=== PATIENT | male | born 1945 | race Caucasian/White ===

== ENCOUNTER 2016-10-28 11:24 | Outpatient (CLI) | payer MEDICARE, OTHER | END 2016-10-28 11:25 | disposition home or self-care (01) | DX: N40.1 Benign prostatic hyperplasia with lower urinary tract symptoms (principal) ==

== ENCOUNTER 2016-12-20 08:12 | Outpatient (CLI) | payer MEDICARE, OTHER | END 2016-12-20 08:13 | disposition home or self-care (01) | DX: R73.01 Impaired fasting glucose (principal); E78.5 Hyperlipidemia, unspecified; E03.9 Hypothyroidism, unspecified; N40.0 Benign prostatic hyperplasia without lower urinary tract symptoms; D12.6 Benign neoplasm of colon, unspecified ==

== ENCOUNTER 2017-12-07 08:00 | Outpatient (CLI) | payer MEDICARE, OTHER | END 2017-12-07 08:01 | disposition home or self-care (01) | LOC: LAB.WCP 08:00 | PROVIDERS: ATTEND Urology | DX: N40.1 Benign prostatic hyperplasia with lower urinary tract symptoms (principal); Z80.42 Family history of malignant neoplasm of prostate | CPT/HCPCS: 36415; 84153 ==

== ENCOUNTER 2018-01-17 12:01 | Emergency (ER) | payer MEDICARE, OTHER ==
[2018-01-17] MEDS ORDERED: ONDANSETRON 4 MG/2 ML VIAL IVP STA (12:28)
[2018-01-17] MEDS ORDERED: MORPHINE 10 MG/ML VIAL IVP STA (12:28)
--- NOTE | 2018-01-17 12:32 | ED Physician Documentation ---
PD HPI ABD PAIN - Stated complaint Stated Complaint: ABD PX/NAUESA - Chief complaint Chief Complaint: Abd Pain - History obtained from History obtained from: Patient - History of Present Illness Timing - onset: Today (2 onset left lower quadrant pain radiating slightly to the back associated with nausea and 2 episodes of dry heaves since about 3 or 4 hours ago. He has never had this before. He did have an episode of dark urine yesterday and notes that he had severe pelvic pain for about 10 minutes may be 10 days ago but no pain since until today. He notes no changes in his bowel movements and he did not move his bowels this morning without any change in the pain but did become nauseous afterwards. There is no associated fevers or chills. His last colonoscopy was about a year and a half ago and he did have some polyps and diverticula. He has no history of abdominal surgery except for a left inguinal hernia repair may be 15 years ago.) Review of Systems Ten Systems: 10 systems reviewed and negative Constitutional: denies: Fever, Chills Cardiac: denies: Chest pain / pressure, Palpitations Respiratory: denies: Dyspnea, Cough GI: reports: Abdominal Pain, Nausea, Vomiting. denies: Constipation, Diarrhea, Hematemesis, Bloody / black stool : reports: Frequency (Always from prostatic hypertrophy). denies: Dysuria PD PAST MEDICAL HISTORY - Past Medical History Past Medical History: Yes Cardiovascular: Hypertension, High cholesterol Respiratory: None Endocrine/Autoimmune: HyPOthyroidism GI: None : None HEENT: None Psych: None Musculoskeletal: None Derm: None - Past Surgical History Past Surgical History: Yes General: Colonoscopy, Other Ortho: Other - Present Medications Home Medications: Ambulatory Orders Medication Instructions Recorded Confirmed Aspirin Chewable [[place] 1 ea PO DAILY 07/02/15 07/02/15 Aspirin] Atorvastatin [Lipitor] 1 ea PO DAILY 07/02/15 07/02/15 [place] Cit/Mag/D3/Zn/Saddle Stitcher/Cheikh/Bor 1 ea PO DAILY 07/02/15 07/02/15 [Citracal-Vit D + Magnesium Tab] Levothyroxine Sodium 1 ea PO DAILY 07/02/15 07/02/15 Meloxicam [Mobic] 7.5 mg PO BIDWM PRN #15 tablet 01/17/18 Ondansetron HCl [Zofran] 4 mg PO Q6H PRN #10 tablet 01/17/18 Oxycodone HCl/Acetaminophen 1 - 2 tab PO Q4H PRN #15 tablet 01/17/18 [Percocet 5-325 mg Tablet] Tamsulosin [Flomax] 01/17/18 - Allergies Allergies/Adverse Reactions: Allergies Allergy/AdvReac Type Severity Reaction Status Date / Time No Known Drug Allergies Allergy Verified 07/02/15 07:41 - Social History Does the pt smoke?: No Smoking Status: Never smoker - Family History Family history: reports: Non contributory PD ED PE NORMAL - Vitals Vital signs reviewed: Yes - General General: Alert and oriented X 3, No acute distress - HEENT HEENT: PERRL, EOMI - Neck Neck: Supple, no meningeal sign, No bony TTP - Cardiac Cardiac: RRR, No murmur - Respiratory Respiratory: No respiratory distress, Clear bilaterally - Abdomen Abdomen: Other (Soft with normal bowel tones and mild left lower quadrant tenderness. No guarding or rebound.) - Back Back: No CVA TTP, No spinal TTP - Derm Derm: Normal color, Warm and dry - Extremities Extremities: No edema, No calf tenderness / cord - Neuro Neuro: Alert and oriented X 3, Normal speech - Psych Psych: Normal mood, Normal affect Results - Vitals Vitals: Vital Signs - 24 hr 01/17/18 01/17/18 12:13 14:23 Temperature 36.0 C L 36.1 C L Heart Rate 84 63 Respiratory 16 18 Rate Blood Pressure 160/85 H 126/76 O2 Saturation 100 99 Oxygen O2 Source Room air - Labs Labs: Laboratory Tests 01/17/18 01/17/18 01/17/18 12:35 12:35 13:42 WBC 8.9 RBC 4.86 Hgb 15.5 Hct 44.6 MCV 91.7 MCH 31.8 H MCHC 34.7 RDW 12.5 Plt Count 141 MPV 9.2 Neut # (Auto) 6.2 Lymph # (Auto) 2.0 [place] # (Auto) 0.6 Eos # (Auto) 0.1 Baso # (Auto) 0.0 Absolute Nucleated RBC 0.00 Nucleated RBC % 0.0 Sodium 133 L Potassium 4.0 Chloride 98 L Carbon Dioxide 28 Anion Gap 7.0 BUN 25 H Creatinine 1.1 Estimated GFR (MDRD) 65 L Glucose 134 H Calcium 8.8 Total Bilirubin 1.1 H AST 19 ALT 23 Alkaline Phosphatase 56 Total Protein 6.9 Albumin 4.3 Globulin 2.6 Albumin/Globulin Ratio 1.7 Lipase 23 Urine Color DARK YELLOW Urine Clarity CLOUDY Urine pH 5.5 Ur Specific [place] 1.025 Urine Protein 30 H Urine Glucose (UA) NEGATIVE Urine Ketones NEGATIVE Urine Occult Blood LARGE H Urine Nitrite NEGATIVE Urine Bilirubin NEGATIVE Urine Urobilinogen 1 (NORMAL) Ur Leukocyte Esterase NEGATIVE Urine RBC TNTC H Urine WBC 0-3 Ur Squamous Epith Cells RARE Squamous Urine Crystals 6-10 Calcium Oxalate Urine Bacteria None Seen Ur Microscopic Review INDICATED Urine Culture Comments NOT INDICATED - Rads (name of study) CT A/P Radiology: EMP read contemporaneously (2 x 3 mm stone mid left ureter causing mild obstruction, diverticulosis, hepatic and renal cysts.) PD MEDICAL DECISION MAKING - ED course ED course: 72-year-old gentleman with relatively acute left lower quadrant pain, the differential diagnosis includes renal colic or diverticulitis. Did not have much help with IV narcotics and then developed colicky pain in the department more consistent with renal colic prior to the administration of Toradol which he then declined but then the pain came back so we did give it to him with complete relief of his pain. CT imaging demonstrates a 4 mm kidney stone. Usually this would be followed conservatively, he does have a urologist, Dr. Pearson in [place]. However the situation is complicated a little bit by the fact that the patient is planning to go to [place] in 5 days. I did speak with Dr. Pearson and they plan to take him to the operating room tomorrow for definitive treatments given the restrictions because of his upcoming trip. Departure - Departure Disposition: Home, Self Care Clinical Impression: Renal colic on left side Condition: Good Record reviewed to determine appropriate education?: Yes Instructions: ED Stone Renal W Colic Follow-Up: Antonio Pearson MD [Physician No Access] - Within 3 Days Prescriptions: Meloxicam [Mobic] 7.5 mg PO BIDWM PRN #15 tablet PRN Reason: Pain Ondansetron HCl [Zofran] 4 mg PO Q6H PRN #10 tablet PRN Reason: Nausea / Vomiting Oxycodone HCl/Acetaminophen [Percocet 5-325 mg Tablet] 1 - 2 tab PO Q4H PRN #15 tablet PRN Reason: Pain Comments: DO NOT EAT OR DRINK ANYTHING AFTER MIDNIGHT 2ND FLOOR- DAY SURGERY AT [facility] AT [address] or drive while taking narcotic pain medication.(PERCOCET/OXYCODONE) Note that many narcotic pain relievers also contain Tylenol/acetaminophen. Please ensure that your total dose of acetaminophen from all sources does not exceed 3 g (3000 mg) per day. You may get constipated while on this medication. Take a stool softener such as Colace twice a day while you are on it. Also add an [id number] laxative such as senna or MiraLAX on any day that you do not have a bowel movement. If you received a narcotic pain medication or sedative while in the emergency department, do not drive for the next 24 hours.
[2018-01-17 12:48] LABS: BASOPHILS % (AUTO) 0.6 %; EOSINOPHILS # (AUTO) 0.1 10^3/uL (0.0-0.7); EOSINOPHILS % (AUTO) 0.9 %; HGB - HEMOGLOBIN 15.5 g/dL (14.0-18.0); LYMPHOCYTES % (AUTO) 22.3 %; MEAN CORPUSCULAR HEMOGLOBIN 31.8 pg (27.0-31.0); MEAN CORPUSCULAR HGB CONC 34.7 g/dL (32.0-36.0); MEAN CORPUSCULAR VOLUME 91.7 fL (80.0-94.0); MEAN PLATELET VOLUME 9.2 fL (7.4-11.4); MONOCYTES # (AUTO) 0.6 10^3/uL (0.0-1.0); MONOCYTES % (AUTO) 6.9 %; NEUTROPHILS # (AUTO) 6.2 10^3/uL (1.5-6.6); NEUTROPHILS % (AUTO) 69.3 %; PLT - PLATELET COUNT 141 10^3/uL (130-450); RED BLOOD COUNT 4.86 10^6/uL (4.70-6.10); RED CELL DISTRIBUTION WIDTH 12.5 % (12.0-15.0); WHITE BLOOD COUNT 8.9 x10^3/uL (4.8-10.8)
[2018-01-17] MEDS ORDERED: HYDROmorphone 2 MG/ML VIAL IVP STA (12:53)
[2018-01-17 13:02] LABS: ALBUMIN 4.3 g/dL (3.2-5.5); ALBUMIN/GLOBULIN RATIO 1.7 (1.0-2.2); BILIRUBIN,TOTAL 1.1 mg/dL (0.2-1.0); CALCIUM 8.8 mg/dL (8.5-10.3); CREATININE 1.1 mg/dL (0.6-1.2); TOTAL PROTEIN 6.9 g/dL (6.7-8.2)
[2018-01-17] MEDS ORDERED: SODIUM CHLORIDE 0.9% 1,000 ML IV ONE (13:19)
[2018-01-17] MEDS ORDERED: PROMETHAZINE INJ 12.5 MG in SODIUM CHLORIDE 0.9% 50 ML IV STA ×2 (13:19→14:03)
[2018-01-17] MEDS ORDERED: KETOROLAC 60 MG/2 ML VIAL IVP STA ×2 (13:19→14:03)
[2018-01-17] MEDS ORDERED: IOPAMIDOL-300 100 ML VIAL ONE (13:29)
[2018-01-17 13:50] LABS: GLUCOSE, URINE (UA) NEGATIVE (NEGATIVE); KETONES,URINE (UA) NEGATIVE (NEGATIVE); LEUKOCYTE ESTERASE, URINE NEGATIVE (NEGATIVE); NITRITE,URINE NEGATIVE (NEGATIVE); OCCULT BLOOD,URINE LARGE (NEGATIVE); PH,URINE 5.5 PH (5.0-7.5); PROTEIN,URINE 30 mg/dL (NEGATIVE); UROBILINOGEN,URINE 1 (NORMAL) E.U./dL (NORMAL)
[2018-01-17 13:53] LABS: BILIRUBIN,URINE NEGATIVE (NEGATIVE); CLARITY,URINE CLOUDY (CLEAR); ICTOTEST,URINE NEGATIVE
[2018-01-17 14:00] LABS: BACTERIA,URINE None Seen /HPF (None Seen); CRYSTALS,URINE 6-10 Calcium Oxalate /LPF; RBC,URINE TNTC /HPF (0-5); SQUAMOUS EPITHELIAL CELL,UR RARE Squamous (<= Few)
--- NOTE | 2018-01-17 15:19 | CT Preliminary Report ---
Exam: CT ABDOMEN/PELVIS W/ IMPRESSION: 1. 2 x 3 mm stone mid left ureter causing mild obstruction. 2. Colonic diverticulosis without diverticulitis. 3. 1.0 cm hepatic cyst. 4. 9.5 cm left renal cyst. 5. Normal appendix. [facility] SITE ID: [id number]
--- NOTE | 2018-01-17 15:25 | CT Report ---
EXAM: CT ABDOMEN AND PELVIS EXAM DATE: 01/17/2018 03:03 PM. CLINICAL HISTORY: Left lower quadrant pain and nausea since 10 AM this morning. COMPARISONS: 12/08/2011. TECHNIQUE: Routine helical CT imaging was performed through the abdomen and pelvis. IV contrast: 100 ML ISOVUE 300. Enteric contrast: No. Reconstructions: Coronal and sagittal. In accordance with CT protocol optimization, one or more of the following dose reduction techniques w ere utilized for this exam: automated exposure control, adjustment of mA and/or KV based on patient s ize, or use of iterative reconstructive technique. FINDINGS: Lung Bases: Unremarkable. Liver: Stable 1 cm subcapsular cyst inferior aspect right lobe of the liver. Gallbladder/Bile Ducts: Unremarkable. Spleen: Normal. Pancreas: Normal. Adrenal Glands: Normal. Kidneys: Normal right kidney and right ureter. Increasing caliber of a large cyst superior pole left kidney now measuring 9.5 cm, previously 8.5 cm. New mild left hydronephrosis. New mild left peripelvic and left perirenal edema. Left ureter is mildl y dilated superior half down to a 2 x 3 mm stone at the level of the superior endplate of L5. Inferio r to this, the left ureter is tiny without additional stones. Peritoneal Cavity/Bowel: Diverticuli off the colon. No free fluid, free air or adenopathy. No masses or acute inflammatory process. The appendix is well visualized and normal. Pelvic Organs: Stable appearance both fat-filled inguinal canals, possible remote left inguinal surge ry. The bladder and visualized pelvic organs are within normal limits. Vasculature: No aneurysms or other significant abnormality. Bones: No significant abnormality. Other: None. IMPRESSION: 1. 2 x 3 mm stone mid left ureter causing mild obstruction. 2. Colonic diverticulosis without diverticulitis. 3. 1.0 cm hepatic cyst. 4. 9.5 cm left renal cyst. 5. Normal appendix. [facility] Referring Provider Line: [phone] SITE ID: [id number]
[2018-01-17 16:28] VITALS: BP 125/75
[2018-01-17] MEDS ORDERED: IOPAMIDOL-300 100 ML VIAL IVP ONE (17:08)
== END 2018-01-17 16:30 | disposition home or self-care (01) ==
LOC: ED 12:01
DX: N13.2 Hydronephrosis with renal and ureteral calculous obstruction (principal); Q61.01 Congenital single renal cyst; K76.89 Other specified diseases of liver; K57.30 Diverticulosis of large intestine without perforation or abscess without bleeding; I10 Essential (primary) hypertension; E03.9 Hypothyroidism, unspecified; Z79.82 Long term (current) use of aspirin
CPT/HCPCS: 36415; 74177; 80053; 81001; 83690; 85025; 96361; 96365; 96375; 99283; 99284; J1170; J7040; Q9967; 81003; 87086

== ENCOUNTER 2018-02-27 08:00 | Outpatient (CLI) | payer MEDICARE, OTHER ==
[2018-02-27 13:45] LABS: ALBUMIN 3.9 g/dL (3.2-5.5); ALBUMIN/GLOBULIN RATIO 1.6 (1.0-2.2); ALKALINE PHOSPHATASE 62 IU/L (42-121); ALT ALANINE AMINOTRANSFERASE 28 IU/L (10-60); AST ASPARTATE AMINOTRANSFERASE 21 IU/L (10-42); BILIRUBIN,TOTAL 1.1 mg/dL (0.2-1.0); BUN - BLOOD UREA NITROGEN 21 mg/dL (6-20); CALCIUM 8.7 mg/dL (8.5-10.3); CARBON DIOXIDE - CO2 27 mmol/L (21-32); CHLORIDE 107 mmol/L (101-111); CHOL/HDL RATIO 2.9 (<5.0); CHOLESTEROL 119 mg/dL; GFR - MDRD 73 (>89); GLUCOSE 113 mg/dL (70-100); HDL CHOLESTEROL 41 mg/dL; LDL CHOLESTEROL,CALCULATED 67 mg/dL; LDL/HDL RATIO 1.6 (<3.6); SODIUM 139 mmol/L (135-145); TOTAL PROTEIN 6.4 g/dL (6.7-8.2); VLDL CHOLESTEROL 11 mg/dL
[2018-02-27 13:54] LABS: HB2 TOTAL 16.1 g/dL; HEMOGLOBIN A1C 0.64 g/dL; HEMOGLOBIN A1C % 5.8 % (4.6-6.2)
== END 2018-02-27 08:01 | disposition home or self-care (01) ==
LOC: LAB.WCP 08:00
PROVIDERS: ATTEND Family Medicine
DX: E78.5 Hyperlipidemia, unspecified (principal); R73.01 Impaired fasting glucose; E03.9 Hypothyroidism, unspecified
CPT/HCPCS: 36415; 80053; 80061; 83036; 83721; 84443

== ENCOUNTER 2018-09-13 08:55 | Outpatient (CLI) | payer MEDICARE, OTHER ==
[2018-09-13 13:15] LABS: ALBUMIN 4.3 g/dL (3.2-5.5); ALBUMIN/GLOBULIN RATIO 1.8 (1.0-2.2); ALKALINE PHOSPHATASE 54 IU/L (42-121); ALT ALANINE AMINOTRANSFERASE 24 IU/L (10-60); AST ASPARTATE AMINOTRANSFERASE 20 IU/L (10-42); BILIRUBIN,TOTAL 1.1 mg/dL (0.2-1.0); BUN - BLOOD UREA NITROGEN 20 mg/dL (6-20); CALCIUM 9.1 mg/dL (8.5-10.3); CARBON DIOXIDE - CO2 28 mmol/L (21-32); CHLORIDE 103 mmol/L (101-111); CHOLESTEROL 133 mg/dL; CREATININE 1.1 mg/dL (0.6-1.2); GFR - MDRD 65 (>89); GLUCOSE 109 mg/dL (70-100); HDL CHOLESTEROL 45 mg/dL; LDL CHOLESTEROL,CALCULATED 75 mg/dL; LDL/HDL RATIO 1.7 (<3.6); SODIUM 136 mmol/L (135-145); TOTAL PROTEIN 6.7 g/dL (6.7-8.2); VLDL CHOLESTEROL 13 mg/dL
== END 2018-09-13 23:59 | disposition home or self-care (01) ==
LOC: LAB.WCP 08:55
PROVIDERS: ATTEND Family Medicine
DX: E78.5 Hyperlipidemia, unspecified (principal)
CPT/HCPCS: 36415; 80053; 80061; 83721; 84443

== ENCOUNTER 2018-11-02 12:34 | Emergency (ER) | payer MEDICARE, OTHER ==
[2018-11-02] MEDS ORDERED: ONDANSETRON 4 MG/2 ML VIAL IVP STA (13:14)
[2018-11-02] MEDS ORDERED: SODIUM CHLORIDE 0.9% 1,000 ML IV ONE (13:14)
[2018-11-02] MEDS ORDERED: fentaNYL 100 MCG/2 ML VIAL IVP STA (13:15)
--- NOTE | 2018-11-02 13:24 | ED Physician Documentation ---
PD HPI ABD PAIN - Stated complaint Stated Complaint: ABD PAIN - Chief complaint Chief Complaint: Abd Pain - Additional information Additional information: 73-year-old male presents the emergency department with left lower abdominal pain that started this afternoon. The patient described a sharp stabbing pain in his left lower abdomen. The patient denies any radiation of the pain. The patient denies vomiting or diarrhea. No blood in the stools recently. No relieving factors. Symptoms are described as moderate. No other associated symptoms Review of Systems Constitutional: denies: Fever, Chills Eyes: denies: Discharge Ears: denies: Ear pain Nose: denies: Congestion Throat: denies: Oral lesions / sores Cardiac: denies: Chest pain / pressure Respiratory: denies: Dyspnea GI: reports: Abdominal Pain. denies: Vomiting, Diarrhea : denies: Dysuria Musculoskeletal: denies: Neck pain Neurologic: denies: Generalized weakness Immunocompromised: denies: Chemotherapy PD PAST MEDICAL HISTORY - Past Medical History Cardiovascular: Hypertension, High cholesterol Respiratory: None Endocrine/Autoimmune: HyPOthyroidism GI: None : None HEENT: None Psych: None Musculoskeletal: None Derm: None - Past Surgical History Past Surgical History: Yes General: Colonoscopy, Other Ortho: Other - Present Medications Home Medications: Ambulatory Orders Medication Instructions Recorded Confirmed Aspirin Chewable [[place] 1 ea PO DAILY 07/02/15 07/02/15 Aspirin] Atorvastatin [Lipitor] 1 ea PO DAILY 07/02/15 07/02/15 Far[place]kh Cit/Mag/D3/Zn/Avionics Integration Engineer/Cheikh/Bor 1 ea PO DAILY 07/02/15 07/02/15 [Citracal-Vit D + Magnesium Tab] Levothyroxine Sodium 1 ea PO DAILY 07/02/15 07/02/15 Meloxicam [Mobic] 7.5 mg PO BIDWM PRN #15 tablet 01/17/18 Ondansetron HCl [Zofran] 4 mg PO Q6H PRN #10 tablet 01/17/18 Oxycodone HCl/Acetaminophen 1 - 2 tab PO Q4H PRN #15 tablet 01/17/18 [Percocet 5-325 mg Tablet] Tamsulosin [Flomax] 01/17/18 Hydrocodone/Acetaminophen [[place] 1 each PO Q6HR PRN #20 tablet 11/02/18 5-325 Tablet] Ondansetron HCl [Zofran] 4 mg PO Q6HR PRN #30 tablet 11/02/18 - Allergies Allergies/Adverse Reactions: Allergies Allergy/AdvReac Type Severity Reaction Status Date / Time No Known Drug Allergies Allergy Verified 11/02/18 12:45 - Social History Does the pt smoke?: No Smoking Status: Never smoker PD ED PE NORMAL - General General: Alert and oriented X 3, No acute distress - HEENT HEENT: Atraumatic, PERRL, EOMI, Ears normal - Neck Neck: Supple, no meningeal sign - Cardiac Cardiac: RRR, Strong equal pulses - Respiratory Respiratory: No respiratory distress - Abdomen Abdomen: Soft, Non distended, Other - Derm Derm: Normal color - Extremities Extremities: No deformity - Neuro Neuro: Alert and oriented X 3, Normal speech - Psych Psych: Normal affect Results - Vitals Vitals: Vital Signs - 24 hr 11/02/18 11/02/18 11/02/18 12:45 13:31 15:07 Temperature 36.6 C Heart Rate 52 L 53 L 67 Respiratory 16 18 18 Rate Blood Pressure 157/67 H 153/92 H 138/78 H O2 Saturation 96 98 99 Oxygen O2 Source Room air - Labs Labs: Laboratory Tests 11/02/18 11/02/18 11/02/18 13:24 13:26 13:26 WBC 7.8 RBC 4.60 L Hgb 14.6 Hct 42.2 MCV 91.7 MCH 31.8 H MCHC 34.7 RDW 13.2 Plt Count 157 MPV 8.7 Neut # (Auto) 5.5 Lymph # (Auto) 1.5 [place] # (Auto) 0.5 Eos # (Auto) 0.2 Baso # (Auto) 0.1 Absolute Nucleated RBC 0.01 Nucleated RBC % 0.1 Sodium 139 Potassium 4.2 Chloride 102 Carbon Dioxide 28 Anion Gap 9.0 BUN 24 H Creatinine 1.0 Estimated GFR (MDRD) 73 L Glucose 103 H Calcium 9.0 Total Bilirubin 0.7 AST 19 ALT 25 Alkaline Phosphatase 61 Total Protein 6.6 L Albumin 4.4 Globulin 2.2 Albumin/Globulin Ratio 2.0 Lipase 26 Urine Color DARK YELLOW Urine Clarity [place]. CLOUDY Urine pH 6.5 Ur Specific [place] 1.025 Urine Protein 100 H Urine Glucose (UA) NEGATIVE Urine Ketones TRACE Urine Occult Blood LARGE H Urine Nitrite NEGATIVE Urine Bilirubin NEGATIVE Urine Urobilinogen 0.2 (NORMAL) Ur Leukocyte Esterase NEGATIVE Urine RBC TNTC H Urine WBC 0-3 Ur Squamous Epith Cells NONE SEEN Urine Bacteria Rare Urine Mucus Few Strands Ur Microscopic Review INDICATED Urine Culture Comments NOT INDICATED - Rads (name of study) CT abd/pelvis Radiology: Final report received, See rad report (1. There is mild left hydronephrosis, hydroureter, and delayed nephrogram secondary to a 0.5 cm stone within the upper left ureter. 2. There is colonic diverticulosis without evidence of diverticulitis. 3. Stable appearance to left inguinal hernia with some ill-defined soft tissue density at the upper margin of the hernia. ) PD MEDICAL DECISION MAKING - ED course ED course: On reevaluation the patient is resting comfortably and appears to be in no acute distress. Presently the patient appears appropriate for discharge and ongoing outpatient management. I discussed with the patient the findings on his workup, I discussed the plan for outpatient management. The patient understands and agrees. I advised returning for any worsening or any concerns Departure - Departure Disposition: 01 Home, Self Care Clinical Impression: Renal cyst Urolithiasis Qualifiers: Urinary calculus location: ureter Qualified Code(s): N20.1 - Calculus of ureter Hydronephrosis Qualifiers: Hydronephrosis type: with renal calculous obstruction Qualified Code(s): N13.2 - Hydronephrosis with renal and ureteral calculous obstruction Inguinal hernia Qualifiers: Obstruction and gangrene presence: without obstruction or gangrene Laterality: unspecified laterality Recurrence: non-recurrent Qualified Code(s): K40.90 - Unilateral inguinal hernia, without obstruction or gangrene, not specified as recurrent Condition: Good Instructions: ED Hernia Inguinal, ED Stone Renal W Colic Follow-Up: Marie Barnes MD [Primary Care Provider] - Within 1 week Antonio Pearson MD [Provider Admit Priv/Credential] - (Please call to schedule a follow-up with your urologist to further assess the kidney stone) [facility] [Provider Group] (Please call to schedule a follow up to further Evaluate your hernia ) Prescriptions: Hydrocodone/Acetaminophen [[place] 5-325 Tablet] 1 each PO Q6HR PRN #20 tablet PRN Reason: Pain Ondansetron HCl [Zofran] 4 mg PO Q6HR PRN #30 tablet PRN Reason: Nausea / Vomiting Comments: Please return to the emergency department for worsening symptoms or any concerns
[2018-11-02 13:36] LABS: BASOPHILS # (AUTO) 0.1 10^3/uL (0.0-0.1); BASOPHILS % (AUTO) 1.4 %; EOSINOPHILS # (AUTO) 0.2 10^3/uL (0.0-0.7); EOSINOPHILS % (AUTO) 2.3 %; HGB - HEMOGLOBIN 14.6 g/dL (14.0-18.0); LYMPHOCYTES # (AUTO) 1.5 10^3/uL (1.5-3.5); LYMPHOCYTES % (AUTO) 18.8 %; MEAN CORPUSCULAR HEMOGLOBIN 31.8 pg (27.0-31.0); MEAN CORPUSCULAR HGB CONC 34.7 g/dL (32.0-36.0); MEAN CORPUSCULAR VOLUME 91.7 fL (80.0-94.0); MEAN PLATELET VOLUME 8.7 fL (7.4-11.4); MONOCYTES # (AUTO) 0.5 10^3/uL (0.0-1.0); MONOCYTES % (AUTO) 6.2 %; NEUTROPHILS # (AUTO) 5.5 10^3/uL (1.5-6.6); NEUTROPHILS % (AUTO) 71.3 %; PLT - PLATELET COUNT 157 10^3/uL (130-450); RED CELL DISTRIBUTION WIDTH 13.2 % (12.0-15.0); WHITE BLOOD COUNT 7.8 x10^3/uL (4.8-10.8)
[2018-11-02 13:47] LABS: GLUCOSE, URINE (UA) NEGATIVE (NEGATIVE); KETONES,URINE (UA) TRACE mg/dL (NEGATIVE); LEUKOCYTE ESTERASE, URINE NEGATIVE (NEGATIVE); NITRITE,URINE NEGATIVE (NEGATIVE); OCCULT BLOOD,URINE LARGE (NEGATIVE); PH,URINE 6.5 PH (5.0-7.5); PROTEIN,URINE 100 mg/dL (NEGATIVE); UROBILINOGEN,URINE 0.2 (NORMAL) E.U./dL (NORMAL)
[2018-11-02 13:49] LABS: CLARITY,URINE SL. CLOUDY (CLEAR)
[2018-11-02 13:50] LABS: ALBUMIN 4.4 g/dL (3.2-5.5); BILIRUBIN,TOTAL 0.7 mg/dL (0.2-1.0); TOTAL PROTEIN 6.6 g/dL (6.7-8.2)
[2018-11-02 13:55] LABS: BILIRUBIN,URINE NEGATIVE (NEGATIVE); ICTOTEST,URINE NEGATIVE
[2018-11-02] MEDS ORDERED: IOPAMIDOL-300 100 ML VIAL ONE (14:00)
[2018-11-02 14:04] LABS: BACTERIA,URINE Rare /HPF (None Seen); MUCUS,URINE Few Strands; RBC,URINE TNTC /HPF (0-5); SQUAMOUS EPITHELIAL CELL,UR NONE SEEN (<= Few)
[2018-11-02] MEDS ORDERED: IOPAMIDOL-300 100 ML VIAL IVP ONE (14:19)
--- NOTE | 2018-11-02 14:31 | CT Report ---
Reason: LLQ pain Procedure Date: 11/02/2018 Accession Number: [id number] / [id number] Procedure: CT - Abdomen/Pelvis W CPT Code: FULL RESULT: EXAM: CT ABDOMEN AND PELVIS EXAM DATE: 11/02/2018 02:18 PM. CLINICAL HISTORY: Left lower quadrant pain COMPARISONS: ABDOMEN/PELVIS W/ 01/17/2018 2:51 PM. TECHNIQUE: Routine helical CT imaging was performed through the abdomen and pelvis. IV contrast: ISOVUE 300 100mL. Enteric contrast: No. Reconstructions: Coronal and sagittal. In accordance with CT protocol optimization, one or more of the following dose reduction techniques were utilized for this exam: automated exposure control, adjustment of mA and/or KV based on patient size, or use of iterative reconstructive technique. FINDINGS: Lung Bases: Unremarkable. Liver: Normal. No masses. Gallbladder/Bile Ducts: Unremarkable. Spleen: Normal. Pancreas: Normal. Adrenal Glands: Normal. Kidneys: There is mild left hydronephrosis. There is a 0.5 cm stone within the upper left ureter. There is mild left perinephric stranding. Mild delayed nephrogram. There is a large exophytic cyst emanating from the superolateral margin of the left kidney. The right kidney demonstrates no acute abnormalities. Peritoneal Cavity/Bowel: Stomach and small bowel demonstrate no acute abnormalities. There is distal colon diverticulosis without clear evidence of diverticulitis. No intraperitoneal free air or free fluid. No enlarged mesenteric or retroperitoneal lymph nodes. The appendix is well visualized and normal. Pelvic Organs: Normal. The bladder and visualized pelvic organs are within normal limits. Vasculature: No aneurysms or other significant abnormality. Bones: No significant abnormality. Other: There is a left inguinal hernia. Stable soft tissue density at the upper margin of the hernia (image 86 series 3). This could be from prior repair. Persistent inflammation is less likely. IMPRESSION: 1. There is mild left hydronephrosis, hydroureter, and delayed nephrogram secondary to a 0.5 cm stone within the upper left ureter. 2. There is colonic diverticulosis without evidence of diverticulitis. 3. Stable appearance to left inguinal hernia with some ill-defined soft tissue density at the upper margin of the hernia. [facility]
[2018-11-02] MEDS ORDERED: HYDROcod/ACETAM 5/325 MG TABLET PO STA (14:51)
[2018-11-02 15:08] VITALS: BP 138/78
== END 2018-11-02 15:07 | disposition home or self-care (01) ==
LOC: ED 12:34
DX: N13.2 Hydronephrosis with renal and ureteral calculous obstruction (principal); N28.1 Cyst of kidney, acquired; K40.90 Unilateral inguinal hernia, without obstruction or gangrene, not specified as recurrent; K57.30 Diverticulosis of large intestine without perforation or abscess without bleeding; I10 Essential (primary) hypertension; Z79.82 Long term (current) use of aspirin
CPT/HCPCS: 36415; 74177; 80053; 81001; 83690; 85025; 96360; 99283; 99284; Q9967; 81003; 87086

== ENCOUNTER 2019-02-20 08:00 | Outpatient (CLI) | payer MEDICARE, OTHER | END 2019-02-20 23:59 | disposition home or self-care (01) | LOC: LAB.WCP 08:00 | PROVIDERS: ATTEND Urology | DX: R97.20 Elevated prostate specific antigen [PSA] (principal) | CPT/HCPCS: 36415; 84153 ==

== ENCOUNTER 2019-03-19 08:00 | Outpatient (CLI) | payer MEDICARE, OTHER ==
[2019-03-19 12:35] LABS: BASOPHILS # (AUTO) 0.1 10^3/uL (0.0-0.1); BASOPHILS % (AUTO) 0.9 %; EOSINOPHILS # (AUTO) 0.4 10^3/uL (0.0-0.7); EOSINOPHILS % (AUTO) 5.5 %; HGB - HEMOGLOBIN 15.7 g/dL (14.0-18.0); LYMPHOCYTES # (AUTO) 2.1 10^3/uL (1.5-3.5); MEAN CORPUSCULAR HGB CONC 34.4 g/dL (32.0-36.0); MEAN CORPUSCULAR VOLUME 93.1 fL (80.0-94.0); MONOCYTES # (AUTO) 0.6 10^3/uL (0.0-1.0); MONOCYTES % (AUTO) 8.5 %; NEUTROPHILS # (AUTO) 3.8 10^3/uL (1.5-6.6); NEUTROPHILS % (AUTO) 54.8 %; PLT - PLATELET COUNT 151 10^3/uL (130-450); RED BLOOD COUNT 4.91 10^6/uL (4.70-6.10); RED CELL DISTRIBUTION WIDTH 12.4 % (12.0-15.0); WHITE BLOOD COUNT 6.9 x10^3/uL (4.8-10.8)
[2019-03-19 13:14] LABS: ALBUMIN 4.3 g/dL (3.2-5.5); ALKALINE PHOSPHATASE 55 IU/L (42-121); ALT ALANINE AMINOTRANSFERASE 27 IU/L (10-60); AST ASPARTATE AMINOTRANSFERASE 20 IU/L (10-42); BILIRUBIN,TOTAL 0.9 mg/dL (0.2-1.0); BUN - BLOOD UREA NITROGEN 20 mg/dL (6-20); CALCIUM 9.2 mg/dL (8.5-10.3); CARBON DIOXIDE - CO2 26 mmol/L (21-32); CHLORIDE 109 mmol/L (101-111); CHOL/HDL RATIO 3.4 (<5.0); CHOLESTEROL 144 mg/dL; GFR - MDRD 73 (>89); GLUCOSE 121 mg/dL (70-100); HDL CHOLESTEROL 42 mg/dL; LDL CHOLESTEROL,CALCULATED 89 mg/dL; LDL/HDL RATIO 2.1 (<3.6); SODIUM 143 mmol/L (135-145); TOTAL PROTEIN 6.5 g/dL (6.7-8.2); VLDL CHOLESTEROL 13 mg/dL
[2019-03-19 13:36] LABS: HB2 TOTAL 16.8 g/dL; HEMOGLOBIN A1C 0.66 g/dL; HEMOGLOBIN A1C % 5.7 % (4.6-6.2)
== END 2019-03-19 08:01 | disposition home or self-care (01) ==
LOC: LAB.WCP 08:00
PROVIDERS: ATTEND Family Medicine
DX: E78.5 Hyperlipidemia, unspecified (principal); E03.9 Hypothyroidism, unspecified; R73.01 Impaired fasting glucose; Z79.899 Other long term (current) drug therapy
CPT/HCPCS: 36415; 80053; 80061; 83036; 83721; 84443; 85025

== ENCOUNTER 2019-07-01 08:00 | Outpatient (CLI) | payer MEDICARE, OTHER ==
[2019-07-01 13:26] LABS: CALCIUM 9.2 mg/dL (8.5-10.3); MAGNESIUM 2.2 mg/dL (1.7-2.8); PHOSPHORUS 2.9 mg/dL (2.5-4.6); URIC ACID 6.6 mg/dL (2.6-7.2)
== END 2019-07-01 23:59 | disposition home or self-care (01) ==
LOC: LAB.WCP 08:00
PROVIDERS: ATTEND Urology
DX: Z87.442 Personal history of urinary calculi (principal)
CPT/HCPCS: 36415; 82310; 82374; 82565; 83735; 84100; 84132; 84295; 84550

== ENCOUNTER 2019-07-01 10:39 | Outpatient (CLI) | payer MEDICARE, OTHER ==
--- NOTE | 2019-07-01 14:44 | XRAY Report ---
Reason: HISTORY OF NEPHROLITHIASIS Procedure Date: 07/01/2019 Accession Number: [id number] / [id number] Procedure: WCP - Abdomen 1 View X-Ray CPT Code: 10293 Final Report FULL RESULT: EXAM: ABDOMEN RADIOGRAPHY EXAM DATE: 07/01/2019 10:53 AM. CLINICAL HISTORY: HISTORY OF NEPHROLITHIASIS. COMPARISON: ABDOMEN/PELVIS W/ 11/02/2018 2:11 PM. TECHNIQUE: 1 view. FINDINGS: Bowel Gas Pattern: Within normal limits. No dilated loops. Other: No definite renal calculi are detected. Calcifications projecting over the pelvis correspond to CT findings in October. IMPRESSION: No definite nephrolithiasis on plain film. [facility]
== END 2019-07-01 23:59 | disposition home or self-care (01) ==
LOC: DI.WCP 10:39
PROVIDERS: ATTEND Urology
DX: Z87.442 Personal history of urinary calculi (principal)
CPT/HCPCS: 36415; 74018; 82310; 82374; 82565; 83735; 84100; 84132; 84295; 84550

== ENCOUNTER 2020-02-06 08:00 | Outpatient (CLI) | payer MEDICARE, OTHER | END 2020-02-06 23:59 | disposition home or self-care (01) | LOC: LAB.WCP 08:00 | PROVIDERS: ATTEND Urology | DX: N40.1 Benign prostatic hyperplasia with lower urinary tract symptoms (principal) | CPT/HCPCS: 36415; 84153 ==

== ENCOUNTER 2020-08-20 08:37 | Outpatient (CLI) | payer MEDICARE, OTHER ==
[2020-08-20 11:49] LABS: BASOPHILS # (AUTO) 0.1 10^3/uL (0.0-0.1); BASOPHILS % (AUTO) 0.8 %; EOSINOPHILS # (AUTO) 0.4 10^3/uL (0.0-0.7); EOSINOPHILS % (AUTO) 5.1 %; HGB - HEMOGLOBIN 16.2 g/dL (14.0-18.0); LYMPHOCYTES # (AUTO) 2.6 10^3/uL (1.5-3.5); LYMPHOCYTES % (AUTO) 35.2 %; MEAN CORPUSCULAR HEMOGLOBIN 31.2 pg (27.0-31.0); MEAN CORPUSCULAR HGB CONC 33.8 g/dL (32.0-36.0); MEAN CORPUSCULAR VOLUME 92.5 fL (80.0-94.0); MEAN PLATELET VOLUME 11.8 fL (7.4-11.4); MONOCYTES # (AUTO) 0.7 10^3/uL (0.0-1.0); MONOCYTES % (AUTO) 8.9 %; NEUTROPHILS # (AUTO) 3.7 10^3/uL (1.5-6.6); NEUTROPHILS % (AUTO) 49.7 %; PLT - PLATELET COUNT 148 10^3/uL (130-450); RED BLOOD COUNT 5.19 10^6/uL (4.70-6.10); WHITE BLOOD COUNT 7.4 x10^3/uL (4.8-10.8)
[2020-08-20 12:24] LABS: ALBUMIN 4.2 g/dL (3.2-5.5); ALBUMIN/GLOBULIN RATIO 1.8 (1.0-2.2); ALKALINE PHOSPHATASE 49 IU/L (42-121); ALT ALANINE AMINOTRANSFERASE 33 IU/L (10-60); AST ASPARTATE AMINOTRANSFERASE 22 IU/L (10-42); BILIRUBIN,TOTAL 0.9 mg/dL (0.2-1.0); BUN - BLOOD UREA NITROGEN 21 mg/dL (6-20); CARBON DIOXIDE - CO2 25 mmol/L (21-32); CHLORIDE 104 mmol/L (101-111); CHOL/HDL RATIO 3.7 (<5.0); CHOLESTEROL 150 mg/dL; GLUCOSE 122 mg/dL (70-100); HDL CHOLESTEROL 41 mg/dL; LDL CHOLESTEROL,CALCULATED 93 mg/dL; LDL/HDL RATIO 2.3 (<3.6); SODIUM 139 mmol/L (135-145); TOTAL PROTEIN 6.6 g/dL (6.7-8.2); VLDL CHOLESTEROL 16 mg/dL
[2020-08-20 12:27] LABS: THYROID STIMULATING HORMONE 2.68 uIU/mL (0.34-5.60)
[2020-08-20 12:30] LABS: FREE T3 3.22 pg/mL (2.5-3.9)
[2020-08-20 12:32] LABS: FREE T4 (FREE THYROXINE) 1.27 ng/dL (0.58-1.64)
== END 2020-08-20 23:59 | disposition home or self-care (01) ==
LOC: LAB.WCP 08:37
PROVIDERS: ATTEND Family Medicine
DX: R73.01 Impaired fasting glucose (principal); E78.5 Hyperlipidemia, unspecified; E03.9 Hypothyroidism, unspecified; N40.0 Benign prostatic hyperplasia without lower urinary tract symptoms
CPT/HCPCS: 36415; 80053; 80061; 83036; 83721; 84153; 84439; 84443; 84481; 85025

== ENCOUNTER → 2021-05-12 | Outpatient (CLI) | payer MEDICARE, OTHER | LOC: LAB 07:00 | PROVIDERS: ATTEND Nurse Practitioner | DX: R05 Cough (principal); Z20.822 Contact with and (suspected) exposure to COVID-19 ==

== ENCOUNTER 2021-05-28 13:45 | Outpatient (CLI) | payer MEDICARE, OTHER | END 2021-05-28 23:59 | disposition home or self-care (01) | LOC: LAB.WCP 13:45 | PROVIDERS: ATTEND Urology | DX: Z87.898 Personal history of other specified conditions (principal); Z12.5 Encounter for screening for malignant neoplasm of prostate | CPT/HCPCS: 36415; G0103; 84153 ==

== ENCOUNTER 2021-08-30 08:00 | Outpatient (CLI) | payer MEDICARE, OTHER ==
[2021-08-30 11:34] LABS: BASOPHILS % (AUTO) 0.6 %; EOSINOPHILS # (AUTO) 0.3 10^3/uL (0.0-0.7); EOSINOPHILS % (AUTO) 4.6 %; HGB - HEMOGLOBIN 15.7 g/dL (14.0-18.0); LYMPHOCYTES # (AUTO) 2.3 10^3/uL (1.5-3.5); LYMPHOCYTES % (AUTO) 34.7 %; MEAN CORPUSCULAR HEMOGLOBIN 31.1 pg (27.0-31.0); MEAN CORPUSCULAR HGB CONC 34.1 g/dL (32.0-36.0); MEAN CORPUSCULAR VOLUME 91.1 fL (80.0-94.0); MEAN PLATELET VOLUME 11.7 fL (7.4-11.4); MONOCYTES # (AUTO) 0.6 10^3/uL (0.0-1.0); MONOCYTES % (AUTO) 9.8 %; NEUTROPHILS # (AUTO) 3.3 10^3/uL (1.5-6.6); PLT - PLATELET COUNT 135 10^3/uL (130-450); RED BLOOD COUNT 5.05 10^6/uL (4.70-6.10); RED CELL DISTRIBUTION WIDTH 12.5 % (12.0-15.0); WHITE BLOOD COUNT 6.6 x10^3/uL (4.8-10.8)
[2021-08-30 12:09] LABS: ALBUMIN 4.1 g/dL (3.2-5.5); ALBUMIN/GLOBULIN RATIO 1.6 (1.0-2.2); ALKALINE PHOSPHATASE 54 IU/L (42-121); ALT ALANINE AMINOTRANSFERASE 22 IU/L (10-60); AST ASPARTATE AMINOTRANSFERASE 18 IU/L (10-42); BILIRUBIN,TOTAL 0.8 mg/dL (0.2-1.0); BUN - BLOOD UREA NITROGEN 25 mg/dL (6-20); CALCIUM 8.8 mg/dL (8.5-10.3); CARBON DIOXIDE - CO2 25 mmol/L (21-32); CHLORIDE 104 mmol/L (101-111); CHOL/HDL RATIO 3.3 (<5.0); CHOLESTEROL 153 mg/dL; CREATININE 0.9 mg/dL (0.6-1.2); GFR - MDRD 82 (>89); GLUCOSE 125 mg/dL (70-100); HDL CHOLESTEROL 47 mg/dL; LDL CHOLESTEROL,CALCULATED 90 mg/dL; LDL/HDL RATIO 1.9 (<3.6); SODIUM 138 mmol/L (135-145); TOTAL PROTEIN 6.6 g/dL (6.7-8.2); TRIGLYCERIDES 78 mg/dL; VLDL CHOLESTEROL 16 mg/dL
[2021-08-30 12:10] LABS: THYROID STIMULATING HORMONE 1.63 uIU/mL (0.34-5.60)
[2021-08-30 12:23] LABS: ESTIMATED AVERAGE GLUCOSE 128 mg/dL (70-100); HEMOGLOBIN A1c% 6.1 % (4.27-6.07)
== END 2021-08-30 23:59 ==
LOC: LAB.WCP 08:00
PROVIDERS: ATTEND Family Medicine
DX: R97.20 Elevated prostate specific antigen [PSA] (principal); M17.9 Osteoarthritis of knee, unspecified; R73.01 Impaired fasting glucose; E78.5 Hyperlipidemia, unspecified; E03.9 Hypothyroidism, unspecified
CPT/HCPCS: 36415; 80053; 80061; 83036; 83721; 84153; 84443; 85025

== ENCOUNTER 2022-02-23 12:35 | Outpatient (CLI) | payer MEDICARE, OTHER ==
--- NOTE | 2022-02-23 14:05 | Ultrasound Report ---
PROCEDURE: Pelvic Limited or F/U INDICATIONS: RIGHT INGUINAL PAIN TECHNIQUE: Real-time transabdominal scanning was performed of the pelvic organs, with image documentation. COMPARISON: None. FINDINGS: Right inguinal hernia is noted. The right inguinal hernia contains fluid, bowel and fat. The hernia e xtends into the superior margin of the right scrotum. Hernia neck measures 1.0 cm. Hernia is not full y reducible. IMPRESSION: Right inguinal hernia which contains fat, bowel and fluid. Reviewed by: Aga Phillip MD, PhD on 02/23/2022 2:03 PM PDT Approved by: Aga Phillip MD, PhD on 02/23/2022 2:03 PM PDT Station ID: [id number]
== END 2022-02-23 12:36 | disposition home or self-care (01) ==
LOC: DI 12:35
PROVIDERS: ATTEND Physician Assistant
DX: K40.30 Unilateral inguinal hernia, with obstruction, without gangrene, not specified as recurrent (principal)

== ENCOUNTER 2022-03-14 13:19 | Outpatient (CLI) | payer MEDICARE, OTHER | END 2022-03-14 13:20 | disposition home or self-care (01) | LOC: LAB.N 13:19 | PROVIDERS: ATTEND Urology | DX: C61 Malignant neoplasm of prostate (principal) | CPT/HCPCS: 36415; 84153 ==

== ENCOUNTER 2022-09-12 13:27 | Outpatient (CLI) | payer MEDICARE, OTHER ==
[2022-09-12 17:51] LABS: ALBUMIN 4.3 g/dL (3.2-5.5); ALBUMIN/GLOBULIN RATIO 1.7 (1.0-2.2); BILIRUBIN,TOTAL 0.8 mg/dL (0.2-1.0); CALCIUM 9.3 mg/dL (8.5-10.3); CREATININE 1.1 mg/dL (0.6-1.2); POTASSIUM 4.6 mmol/L (3.5-5.0); TOTAL PROTEIN 6.8 g/dL (6.7-8.2)
== END 2022-09-12 13:28 | disposition home or self-care (01) ==
LOC: LAB.N 13:27
PROVIDERS: ATTEND Internal Medicine Hematology & Oncology
DX: C61 Malignant neoplasm of prostate (principal)
CPT/HCPCS: 36415; 80053; 84153

== ENCOUNTER 2022-11-17 08:01 | Outpatient (CLI) | payer MEDICARE, OTHER ==
[2022-11-17 12:19] LABS: CHOLESTEROL 144 mg/dL; HDL CHOLESTEROL 48 mg/dL; LDL CHOLESTEROL,CALCULATED 82 mg/dL; LDL/HDL RATIO 1.7 (<3.6); TRIGLYCERIDES 68 mg/dL; VLDL CHOLESTEROL 14 mg/dL
[2022-11-17 12:27] LABS: THYROID STIMULATING HORMONE 2.41 uIU/mL (0.34-5.60)
[2022-11-17 12:29] LABS: FREE T3 2.72 pg/mL (2.5-3.9); FREE T4 (FREE THYROXINE) 1.34 ng/dL (0.58-1.64)
[2022-11-17 12:32] LABS: ESTIMATED AVERAGE GLUCOSE 126 mg/dL (70-100)
== END 2022-11-17 08:02 | disposition home or self-care (01) ==
LOC: LAB.N 08:01
PROVIDERS: ATTEND Family Medicine
DX: E78.5 Hyperlipidemia, unspecified (principal); R73.03 Prediabetes; E03.9 Hypothyroidism, unspecified
CPT/HCPCS: 36415; 80061; 83036; 83721; 84439; 84443; 84481

== ENCOUNTER 2023-12-12 07:58 | Outpatient (CLI) | payer MEDICARE, OTHER ==
[2023-12-12 12:36] LABS: ALBUMIN 4.3 g/dL (3.2-5.5); BILIRUBIN,DIRECT 0.12 mg/dL (0.03-0.18); BILIRUBIN,TOTAL 0.6 mg/dL (0.2-1.0); TOTAL PROTEIN 6.4 g/dL (6.4-8.9)
== END 2023-12-12 07:59 | disposition home or self-care (01) ==
LOC: LAB.N 07:58
PROVIDERS: ATTEND Physician Assistant Medical
DX: B35.4 Tinea corporis (principal)
CPT/HCPCS: 36415; 80076; 82565; 84520